=== PATIENT | female | born 1995 | race Caucasian/White ===

== ENCOUNTER 2020-06-17 15:10 | Inpatient (IN) | payer OTHER ==
[~2020-06-17] VITALS: Ht 162.6 cm; Wt 89.8 kg
[2020-06-17 16:54] LABS: BASOPHIL % 0.4 % (0-2); CARBON DIOXIDE 24.9 mmol/L (21-32); CHLORIDE SERUM 101 mmol/L (98-107); GFR1 > 60 mL/min; GLUCOSE SERUM 106 mg/dL (74-106); PLATELET COUNT 465 x10^3mcL (130-400); POTASSIUM SERUM 3.7 mmol/L (3.5-5.1); RED CELL DISTRIBUTION WIDTH 14.2 % (11.5-14.5); SODIUM SERUM 137 mmol/L (136-145)
--- NOTE | 2020-06-17 17:01 | NUR ---
PT LAYING SUPINE IN GURNEY. ON CELL PHONE AWAKE, ALERT X4, NO DISTRESS. CONNECTED TO FULL CM. FLUIDS INFUSING. IV PATENT AND INTACT. STATES PAIN HAS DECREASED.
[2020-06-17 17:13] LABS: C REACTIVE PROTEIN 18.9 mg/dL (<=0.9)
--- NOTE | 2020-06-17 17:35 | NUR ---
CALLED RX TO ORDER VACNO. STATES WILL BRING.
--- NOTE | 2020-06-17 17:47 | NUR ---
PT ASSISTED TO RESTROOM. IV ABT STRATED AND IVF INFUSING. TOLERATING WELL. ALL NEEDS MET. WILL CONT TO MONITOR.
--- NOTE | 2020-06-17 18:29 | NUR ---
PT HAS IV ABT INFUSING. RX STATES BRINGING CONSTANTINO
--- NOTE | 2020-06-17 18:30 | NUR ---
CALL LIGHT IN REACH.
--- NOTE | 2020-06-17 18:53 | NUR ---
PT FELT LIKE ITCHINESS IN THROAT AND FACE REDNESS SO DR BRODY ASSESSED AND GAVE BENADRYL PO. STATED NOT ALLERGIC REACTION TO VANCO.
--- NOTE | 2020-06-17 19:10 | NUR ---
GAVE REPORT TO JOVAN FOR CONTINUITY OF CARE.
--- NOTE | 2020-06-17 19:11 | NUR ---
REPORT RECIEVED FROM REVA LOBO. PT RESTING ON GURNEY IN NAD. PT BREATHING EVEN AND UNLABORED. FULL CM AND [address] LIGHTS TURNED OFF FOR PT COMFORT. WILL CONTINUE TO MONITOR.
--- NOTE | 2020-06-17 21:20 | NUR ---
PT RESTING ON GURNEY IN NAD. PT BREATHING EVEN AND UNLABORED. PT NOTED EYES CLOSED BUT EASILY AROUSABLE. CM AND [address] WILL CONTINUE TO MONITOR.
--- NOTE | 2020-06-17 21:53 | NUR ---
REPORT GIVEN TO MAJO LOBO AT THIS TIME.
--- NOTE | 2020-06-17 22:05 | NUR ---
RECEIVED PT FROM ED VIA VAMSHI, CAME IN DUE TO LEFT LEG PAIN X4 DAYS AFTER A BUGBITE. AAOX4. DENIES HEADACHE/DIZZINESS. ABLE TO FOLLOW COMMANDS. NO SOB NOTED. DENIES CHEST PAIN/PRESSURE, SINUS TACHYCARDIA ON THE MONITOR, HR AT 112. W/ LLE EDEMA. C/O 10/10 PAIN ON LLE WORSE ON MOVEMENT OR STEPPING ON HER FOOT. DENIES ABDOMINAL DISCOMFORT. VOIDS. W/ SMALL OPEN WOUND ON THE LEFT POSTERIOR LOWER LEG, NOTED MINIMAL SANGUINEOUS DRAINAGE, PERIWOUND IS PINK. W/ SMALL SCAB ON THE RIGHT LOWER LATERAL ASPECT OF THE LEG. NO FOUL ODOR NOTED ON BLE. IV SITE PATENT AND INTACT. BEDSIDE COMMODE PROVIDED. SIDE RAILS UPX2. CALL LIGHT ON REACH. PRIMARY NURSE ANDIE AT BEDSIDE FOR CONTINUITY OF CARE
--- NOTE | 2020-06-17 22:07 | NUR ---
PT TRANSFERED TO TELE AT THIS TIME IN NAD. IV INTACT AND FLUSHES WITH NO COMPLICATIONS. PT VERBALIZED UNDERSTANDING OF PLAN OF CARE. PT AWAKE AND ALERT. PT BREATHING EVEN AND UNLABORED. MAJO LOBO AT BEDSIDE TO ASSUME CARE OF PT.
[2020-06-17 22:20] VITALS: BP 114/79
[2020-06-17 22:25] VITALS: Ht 162.6 cm; Wt 89.8 kg
--- NOTE | 2020-06-18 00:38 | NUR ---
PT AWAKE, RESTING IN BED AT THIS TIME. NO SIGNS OF ACUTE DISTRESS NOTED. RR EVEN AND UNLABORED ON RA. PT REPORTED HAVING SCALP ITCHYNESS AND TONGUE THROBBING DURING ADMINISTRATION OF VANCOMYCIN IN ER, WILL DISCUSS WITH DOCTOR. PTS L LOWER LEG RED AND SWOLLEN, PT REPORTS DISCHARGE. PT STATES PAIN IS 6/10, DENIES THE NEED FOR MEDICATION AT THIS TIME. CALL LIGHT WITHIN REACH. WILL CONTINUE TO MONITOR.
[2020-06-18 05:18] VITALS: BP 112/70
--- NOTE | 2020-06-18 06:35 | NUR ---
PT SLEEPING AT THIS TIME. NO SIGNS OF ACUTE DISTRESS NOTED. RR EVEN AND UNLABORED ON RA. NO C/O PAIN AT THIS TIME. IV INFUSING, PATENT AND INTACT. ALL NEEDS/CONERNS ADDRESSED THROUGHOUT THE SHIFT. WILL ENDORSE CARE TO ONCOMING SHIFT NURSE.
[2020-06-18 07:10] LABS: BASOPHIL % 0.4 % (0-2); RED CELL DISTRIBUTION WIDTH 14.4 % (11.5-14.5)
[2020-06-18 07:11] LABS: PLATELET COUNT 404 x10^3mcL (130-400)
[2020-06-18 07:28] LABS: CALCIUM 8.4 mg/dL (8.5-10.1); CARBON DIOXIDE 26.5 mmol/L (21-32); CHLORIDE SERUM 104 mmol/L (98-107); GFR1 > 60 mL/min; GLUCOSE SERUM 92 mg/dL (74-106); POTASSIUM SERUM 3.3 mmol/L (3.5-5.1); SODIUM SERUM 138 mmol/L (136-145)
[2020-06-18 08:14] VITALS: BP 98/48
--- NOTE | 2020-06-18 08:18 | NUR ---
RECIEVED REPORT FROM [facility] NURSE. PATIENT CURRENTLY ON STANDARD PRECAUTIONS. PATIENT CURRENTLY OBSERVED RESTING IN BED. RESPIRATIONS EQUAL AND UNLABORED WITH SYMMETRICAL CHEST RISE AND FALL. IV TO RAC CURRENTLY INFUSING D5NS AT 80cc/HOUR. LLE OPEN WOUND CURRENLY RED, WARM, AND DRY. SAFETY PRECAUTIONS IN PLACE. CALL LIGHT WITHIN REACH. WILL CONTINUE TO PROVIDE CARE FOR PATIENT.
[2020-06-18 12:03] VITALS: BP 114/60
--- NOTE | 2020-06-18 12:08 | NUR ---
PATIENT REPORTS HAVING ALLERGIC REACTION TO VANCO- PATIENT STATES THAT POST LAST VANCO ADMINISTRATION HER TOUNGE STARTED TO SWELL AND SHE BECAME EXTREMELY ITCHY ALL OVER HER BODY. PHARMACIST AWARE, DOCTOR AWARE, PER DOCTOR ORDER VANCOMYCIN HAS BEEN DISCONTINUED. PATIENT NOW CURRENTLY ON ZOSYN ONLY FOR ANTIBIOTIC THERAPY.
[2020-06-18 16:31] VITALS: BP 118/75
--- NOTE | 2020-06-18 18:44 | NUR ---
PATIENT CURRENTLY AWAKE ALERT AND ORIENTED X 4. LEFT LOWER EXTREMITY REMAINS REDDENDED. PURULENT DRAINAGE AT SITE OF ABSCESS. ABSCESS CULTURE TAKEN TODAY. IV VANCO DISCONTINUED DUE TO ALLERGIC REACTION. PATIENT CURRENTLY ON ZOSYN FOR IV ANTIBIOTIC THERAPY. PATIENT REPORTED PAIN SEVERAL TIMES THROUGHOUT THE SHIFT AND WAS MEDICATED PRN. NEW PICTURES TAKEN OF BILATERAL LOWER EXTREMITY ABSCESSES AND PLACED IN CHART. SAFETY PRECAUTIONS IN PLACE. CALL LIGHT WITHINR REACH. WILL ENDORSE ALL FURTHER CARE TO THE NOC NURSE.
--- NOTE | 2020-06-18 20:21 | NUR ---
RECIEVED PT AWAKE LYING IN BED VERY SLEEPY JUST HAD NAUSEA MED. ALERT AND ORIENTED AND FOLLOWS VERBAL COMMAND.LOWER LEGS REDDISH AND TEST FOR DVT AND NEGATIVE. ABDOMEN SOFT W/ ACTIVE BOWEL SOUND. NO ACUTE DISTRESS NOTED.
[2020-06-18 21:30] VITALS: BP 114/79
--- NOTE | 2020-06-19 03:00 | NUR ---
205706/18/20 PT AWAKE W/ COMPLAINED OF PAIN AT THE LOWER LEG. NARCO ITAB PO GIVEN W/ RELIEVED.RESTING WELL AFTER. 06/19/20199 AWAKE DRESSING AT THE LEFT LEG CAME OFF AND REPLACED ASEPTICALLY.NO ACUTE DISTRESS NOTED.
[2020-06-19 05:37] LABS: BASOPHIL % 1.1 % (0-2); RED CELL DISTRIBUTION WIDTH 14.2 % (11.5-14.5)
[2020-06-19 05:47] LABS: PLATELET COUNT 471 x10^3mcL (130-400)
[2020-06-19 05:53] LABS: CALCIUM 8.8 mg/dL (8.5-10.1); CARBON DIOXIDE 26.1 mmol/L (21-32); CHLORIDE SERUM 101 mmol/L (98-107); GFR1 > 60 mL/min; GLUCOSE SERUM 103 mg/dL (74-106); POTASSIUM SERUM 3.9 mmol/L (3.5-5.1); SODIUM SERUM 136 mmol/L (136-145)
[2020-06-19 06:29] VITALS: BP 100/65
--- NOTE | 2020-06-19 06:44 | NUR ---
AWAKE ALERT AND ORIENTED LYING IN BED.IV INFUSING WELL W/ NO INFILTRATION NOTED.ASLEEP MOST OF THE NIGHT. LEGS REMAIN SWOLLEN BUT DECREASD AND ELEVATED ON PILLOWS'NO ACUTE DISTRESS NOTED.
[2020-06-19 09:16] VITALS: BP 107/60
[2020-06-19 12:45] VITALS: BP 105/62
--- NOTE | 2020-06-19 14:55 | NUR ---
CALLED TO RE; MRSA WOUND RESULTS AND WAITING FOR RETURN CALL.
[2020-06-19 17:05] VITALS: BP 107/77
[2020-06-19 20:30] VITALS: BP 119/78
--- NOTE | 2020-06-19 20:45 | NUR ---
REC'D REPORT FROM ASSISTED LIVING ASSOCIATE. PT RESTING IN BED. AAOX4, SPEECH CLEAR, FOLLOWS COMMANDS. MED SURG, NO TELE. DENIES CP, DIZZINESS, OR PALPTITATIONS. DENIES RESP DISTRESS OR SOB. BREATHING EVEN/UNLABORED ON RA. ABD SOFT/ROUND. DENIES ABD PAIN, TENDERNESS, OR N/V. VOIDING FREELY. BLE WEAKENESS. LLE NONPITTING EDEMA. OPEN WOUND TO CALF- GAUZE DRESSING WITH MOD SANGUINEOUS DRAINAGE. R CALF CLOSED WOUND WITH DRY SCAB- ANALI. IV TO RAC PATENT AND INFUSING, SITE WNL. CALL LIGHT WITHIN REACH, BED AT LOWEST POSITION. WILL CONTINUE TO MONITOR.
--- NOTE | 2020-06-19 20:56 | NUR ---
PT C/O 06/04 BLE PAIN- THROBBING, TIGHTNESS, AND CRAMPING. NORCO GIVEN PER ORDER. EXPLAINED NPO AFTER MN FOR SURGERY TOMORROW. PT VERBALIZED UNDERSTANDING. WILL CONTINUE TO MONITOR.
--- NOTE | 2020-06-19 23:43 | NUR ---
REC'D CALL BACK FROM DR. MARCUS. REQUESTED AND REC'D ORDERS FOR COAGULATION LABS FOR AM [facility]. INFORMED OF MRSA NARES (+). NO TREATMENT AT THIS TIME PER PHYSICIAN.
--- NOTE | 2020-06-20 00:45 | NUR ---
PT RESTING IN BED WITH EYES CLOSED. NO SIGNS OF DISTRESS OR PAIN NOTED. BREATHING EVEN/UNLABORED ON RA. BLE ELEVATED WITH PILLOWS. CALL LIGHT WITHIN REACH, BED AT LOWEST POSITION. WILL CONTINUE TO MONITOR.
--- NOTE | 2020-06-20 01:25 | NUR ---
OBTAINED CONSENT FOR SURGERY IN AM. PT ALSO INITIALED R/L LEGS. DRESSING TO LLE CHANGED. NO COMPLAINTS OF PAIN AT THIS TIME.
[2020-06-20 05:49] VITALS: BP 103/69
--- NOTE | 2020-06-20 06:04 | NUR ---
PT AWAKE AND RESTING IN BED. C/O 9/10 BLE PAIN. NORCO GIVEN PER ORDER. MIN DRAINAGE TO LLE DRESSING. PT CLEANED WITH CHG WIPES AND GOWN CHANGED. PENDING I/D AND CYST EXCISION TODAY. SURGICAL CONSENT SIGNED AND CHECKLIST IN PROGRESS. CALL LIGHT WITHIN REACH, BED AT LOWEST POSITION. WILL ENDORSE TO DAY NURSE.
[2020-06-20 06:41] LABS: CALCIUM 9.2 mg/dL (8.5-10.1); CARBON DIOXIDE 18.6 mmol/L (21-32); CHLORIDE SERUM 103 mmol/L (98-107); GFR1 > 60 mL/min; GLUCOSE SERUM 98 mg/dL (74-106); POTASSIUM SERUM 3.8 mmol/L (3.5-5.1); SODIUM SERUM 138 mmol/L (136-145)
[2020-06-20 07:29] LABS: BASOPHIL % 0.2 % (0-2)
--- NOTE | 2020-06-20 07:30 | NUR ---
RECIVED PT RESTING IN BED. PT A & O X4. PT DID NOT APPEAR IN DISTRESS. BREATHING WAS EQUAL AND UNLABORED ON ROOM AIR. IV TO THE RIGHT HAND CLEAN DRY AND INTACT. PT BED WAS IN THE LOWEST POSITION AND CALL LIGHT WITHIN REACH. WILL CONTINUE TO MONITOR.
[2020-06-20 07:39] LABS: PLATELET COUNT 499 x10^3mcL (130-400)
--- NOTE | 2020-06-20 08:00 | NUR ---
REPORT GIVEN TO OR.
[2020-06-20 08:23] VITALS: BP 101/45
--- NOTE | 2020-06-20 08:45 | NUR ---
PT TAKEN TO OR. PT WAS COMFORTABLE AND IN STABLE CONDITION.
[2020-06-20 11:25] VITALS: BP 104/65
--- NOTE | 2020-06-20 11:25 | NUR ---
RECIVED REPORT FROM OR. PT TRANFESRED BACK AND RESUMED CARE. PT WAS RESTING IN BED. BREATHING EQUAL AND UNLABORED ON 2L BY NC. WILL CONTINUE TO MONITOR
--- NOTE | 2020-06-20 12:02 | NUR ---
SPOKE WITH DR. STOREY MADE AWARE OF WOUND CULTURE, PER DR. STOREY PT IS OKAY TO DISCHARGE HOME WITH BACTRIM PO. ASKED PT IF NEEDS ANYTHING FOR DISCHARGE PT ASKING FOR PAIN MEDICATION AND WORK NOTE, DR. STOREY AWARE.
[2020-06-20] MEDS ORDERED: ACETAMINOPHEN-H1 TA1 PO (12:06)
[2020-06-20] MEDS ORDERED: BACTRIM DS1 TAB PO (12:07)
[2020-06-20 12:42] VITALS: BP 104/65
--- NOTE | 2020-06-20 15:28 | NUR ---
PT SITTING UP IN BED. GIVEN DISCHARGE INSTRUCTIONS. PT ENCOURAGED TO FOLLOW UP IN DR. MALIK OFFICE WITHIN ON WEEK OF DISCHARGE, PT PROVIDED DR. MALIK CLINIC NUMBER AND INSTRUCTED TO SCHEDULE AN APPOINTMENT ON 06/27/20. PT EDUCATED ON HOW TO DO DRESSING CHANGES, PT INSTRUCTED TO PACK LLE WITH IODOFORM, APPLY DRY DRESSING AND TAPE. PT INSTRUCTED TO APPLY CLEAN BANDAID TO RLE, ENCOURAGED PT TO MONITOR FOR ANY SIGNS OF INFECTION SUCH SWELLING, REDNESS, PUS OR FEVER. PT ENCOURAGED TO NOTIFY DR. TRIPP OF ANY OF THE FOLLOWING. PT GIVEN PRESCRIPTIONS FOR NORCO AND BACTRIM. PT ASKING TO HAVE NORCO PRIOR TO LEAVING, PROVIDED. PT GIVEN OFF WORK NOTE AND PROVIDE WITH A WEEK WORTH OF SUPPLIES TO DO DRESSING CHANGES. ALL QUESTIONS AND CONCERNS ADDRESSED. NO PROBLEMS ENCOUNTERED.
== END 2020-06-20 15:51 | disposition home or self-care (01) | DRG 720 ==
LOC: ED 15:10 → DU 18:53 → MU 18:53 → DU 22:03 → MU 06-18 12:07
PROVIDERS: Emergency Medicine; Surgery; ADMIT Internal Medicine; ATTEND Internal Medicine
PROC: 0JBN0ZZ Excision of Right Lower Leg Subcutaneous Tissue and Fascia, Open Approach (ICD-10-PCS; 2020-06-20)
PROC: 0Y9N0ZZ Drainage of Left Foot, Open Approach (ICD-10-PCS; principal; 2020-06-20 09:30)
DX: A41.9 Sepsis, unspecified organism (principal); L02.416 Cutaneous abscess of left lower limb; E66.9 Obesity, unspecified; L03.115 Cellulitis of right lower limb; L03.116 Cellulitis of left lower limb; Z71.3 Dietary counseling and surveillance; Z68.34 Body mass index [BMI] 34.0-34.9, adult
CPT/HCPCS: 90715; G0378; J0696; J1170; J1650; J2175; J2250; J2270; J2405; J2543; J3010; J3370; J3490; J7030; J7042; J7060; Q0092; Q0163; Q9967

== ENCOUNTER 2020-06-22 18:51 | Emergency (ER) | payer OTHER ==
[~2020-06-22] VITALS: Ht 162.6 cm; Wt 86.6 kg
[~2020-06-22 18:51] MED LIST: ACETAMINOPHEN-H1 TA1 PO; BACTRIM DS1 TAB PO
[2020-06-22 19:05] VITALS: Ht 162.6 cm; Wt 86.6 kg
[2020-06-22 19:36] VITALS: BP 137/80
== END 2020-06-22 19:36 | disposition home or self-care (01) ==
LOC: ED 18:51
DX: L02.416 Cutaneous abscess of left lower limb (principal); Z88.1 Allergy status to other antibiotic agents